=== PATIENT | female | born 1960 | race African-American/Black ===

== ENCOUNTER 2024-01-20 12:37 | Emergency (ER) | payer MEDICARE, OTHER ==
[~2024-01-20] VITALS: Ht 167.6 cm; Wt 84.9 kg
[2024-01-20] MEDS: KETOROLAC TROMETHAMINE 60 MG/2 ML VIAL IM ONE (13:50)
[2024-01-20] MEDS ORDERED: MELOXICAM15 MG PO (16:25)
[2024-01-20] MEDS ORDERED: METHOCARBAMOL750 MG PO (16:28)
[2024-01-20] MEDS ORDERED: CYCLOBENZAPRINE5 MG PO (16:40)
[2024-01-20 16:48] VITALS: PULSE 80; RESP 18; TEMP 98.4; O2SAT 98
[2024-01-20] MEDS ORDERED: ATORVASTATIN CA20 MG PO (17:52)
[2024-01-20] MEDS ORDERED: OMEGA 3 1,0001 EACH PO (17:52)
[2024-01-20] MEDS ORDERED: LANTANOPROST (17:52)
[2024-01-20] MEDS ORDERED: VITAMIN B122500 MCG (17:52)
[2024-01-20] MEDS ORDERED: LOSARTAN POTAS100 MG PO (17:52)
[2024-01-20] MEDS ORDERED: TRAZODONE HCL100 MG PO (17:52)
[2024-01-20] MEDS ORDERED: OZEMPIC0.25 MG/02 (17:52)
[2024-01-20] MEDS ORDERED: AMLODIPINE BESY10 MG PO (17:52)
[2024-01-20] MEDS ORDERED: CARVEDILOL12.5 MG PO (17:52)
[2024-01-20] MEDS ORDERED: [UNRECOGNIZED DRUG - OTHER] PO (17:52)
[2024-01-20] MEDS ORDERED: ASPIRIN EC81 MG PO (17:52)
[2024-01-20] MEDS ORDERED: CLONIDINE HCL0.1 MG PO (17:52)
[2024-01-20] MEDS ORDERED: VITAMIN E1000 UNI1 (17:52)
[2024-01-20] MEDS ORDERED: BUPROPION XL150 MG PO (17:52)
[2024-01-20] MEDS ORDERED: OMEPRAZOLE40 MG PO (17:52)
[2024-01-20] MEDS ORDERED: VENLAFAXINE HCL75 M2 PO (17:52)
[2024-01-20] MEDS ORDERED: ZIPRASIDONE HCL20 MG PO (17:52)
[2024-01-20] MEDS ORDERED: LUNESTA1 MG (17:52)
[2024-01-20] MEDS ORDERED: DEPAKOTE ER250 MG PO (17:52)
== END 2024-01-20 16:56 | disposition home or self-care (01) ==
LOC: FSED 12:57
DX: M62.838 Other muscle spasm (principal); M47.812 Spondylosis without myelopathy or radiculopathy, cervical region; M48.061 Spinal stenosis, lumbar region without neurogenic claudication; M54.6 Pain in thoracic spine; W01.0XXA Fall on same level from slipping, tripping and stumbling without subsequent striking against object, initial encounter; Y92.89 Other specified places as the place of occurrence of the external cause; E11.9 Type 2 diabetes mellitus without complications; I10 Essential (primary) hypertension; E78.5 Hyperlipidemia, unspecified; F41.9 Anxiety disorder, unspecified; K21.9 Gastro-esophageal reflux disease without esophagitis; G89.29 Other chronic pain; G47.00 Insomnia, unspecified; Z96.651 Presence of right artificial knee joint
CPT/HCPCS: 72125; 72128; 72131; 99283; J1885